=== PATIENT | female | born 2000 ===

== ENCOUNTER 2023-02-02 06:30 | Outpatient (CLI) | payer OTHER, SELFPAY | END 2023-02-02 06:31 | disposition home or self-care (01) | PROVIDERS: PCP Family Medicine; Visit Provider Family Medicine | DX: M54.16 Radiculopathy, lumbar region (principal); M51.26 Other intervertebral disc displacement, lumbar region | CPT/HCPCS: 64483; J1100; Q9966 ==

== ENCOUNTER 2023-04-20 14:30 | Outpatient (RCR) | payer OTHER, SELFPAY | END 2023-08-18 23:59 | disposition home or self-care (01) | PROVIDERS: PCP Family Medicine; Visit Provider Family Medicine | DX: M54.16 Radiculopathy, lumbar region (principal); M54.9 Dorsalgia, unspecified; Z51.89 Encounter for other specified aftercare | CPT/HCPCS: 97012; 97110; 97112; 97140; 97162; 97530; 97535 ==

== ENCOUNTER 2024-11-20 14:05 | Outpatient (CLI) | payer BC, SELFPAY ==
[2024-11-20 14:32] LABS: Hemoglobin* 15.3 gm/dL (12.0-16.0)
[2024-11-24 09:23] LABS: Sex Hormone Binding Globulin 19 nmol/L (25-122); Testosterone, Free LC-MS/MS 186.7 pg/mL (0.8-7.4); Testosterone, LC-MS/MS 736 ng/dL (9-55)
== END 2024-11-20 14:06 | disposition home or self-care (01) ==
PROVIDERS: Visit Provider Nurse Practitioner Family
DX: Z51.81 Encounter for therapeutic drug level monitoring (principal); Z79.899 Other long term (current) drug therapy
CPT/HCPCS: 36415; 84270; 84402; 84403; 85018